=== PATIENT | female | born 2000 | race African-American/Black ===

== ENCOUNTER 2021-05-10 13:37 | Emergency (ER) | payer MEDICAID ==
[~2021-05-10] VITALS: Ht 160 cm; Wt 55.0 kg
[2021-05-10 15:03] LABS: BASOPHILS % 0.3 % (0.0-2.0); EOSINOPHILS % 3.3 % (0.0-5.0); HEMATOCRIT. 38.8 % (36.0-48.0); HEMOGLOBIN. 12.4 g/dL (12.0-16.0); LYMPHOCYTES % 13.1 % (20.0-50.0); MEAN CORPUSCULAR HEMOGLOBIN 27.3 pg (28.0-32.0); MEAN CORPUSCULAR VOLUME 85.4 fL (81.0-99.0); MEAN PLATELET VOLUME 8.1 fl (7.4-10.4); MONOCYTES % 3.9 % (2.0-8.0); NEUTROPHILS % 79.4 % (40.0-76.0); PLATELET 290 x1000/uL (130-400); RED BLOOD CELL COUNT 4.54 mill/uL (4.2-5.4); RED CELL DISTRIBUTION WIDTH 14.7 % (11.6-14.6)
[2021-05-10 15:07] LABS: CHLORIDE 101 mEq/L (98-107)
[2021-05-10 15:31] LABS: B-HCG QUANTITATIVE 36856 mIU/mL (<3)
[2021-05-10 17:42] LABS: CLARITY URINE CLEAR (CLEAR); COLOR URINE YELLOW (YELLOW); KETONES URINE NEGATIVE (NEGATIVE); LEUKOCYTE ESTERASE URINE 3+ (NEGATIVE); NITRITE URINE NEGATIVE (NEGATIVE); OCCULT BLOOD URINE NEGATIVE (NEGATIVE); PROTEIN URINE NEGATIVE (NEGATIVE); SPECIFIC GRAVITY URINE 1.014 (1.005-1.030); UROBILINOGEN URINE 0.2 E.U./dL (0.2-1.0)
[2021-05-10] MEDS ORDERED: NITR-87 MT (18:47)
[2021-05-10 18:59] VITALS: BP 118/65
== END 2021-05-10 19:00 | disposition home or self-care (01) ==
LOC: ER 13:37
DX: O26.892 Other specified pregnancy related conditions, second trimester (principal); Z3A.17 17 weeks gestation of pregnancy
CPT/HCPCS: 36415; 76805; 80053; 81003; 84702; 85025; 86850; 86900; 99291

== ENCOUNTER 2021-06-21 11:52 | Emergency (ER) | payer MEDICAID ==
[~2021-06-21] VITALS: Ht 165.1 cm; Wt 69.0 kg
[~2021-06-21 11:52] MED LIST: NITR-87 MT
[2021-06-21 11:58] VITALS: BP 120/60
[2021-06-21] MEDS ORDERED: ACETAMINOPHEN 325MG TABLET PO ONE (12:15)
[2021-06-21] MEDS ORDERED: TOPUD PO (12:16)
== END 2021-06-21 13:08 | disposition home or self-care (01) ==
LOC: ER 13:00
DX: B34.9 Viral infection, unspecified (principal); Z20.822 Contact with and (suspected) exposure to COVID-19
CPT/HCPCS: 99283; C9803; U0003; U0005

== ENCOUNTER 2021-10-28 23:11 | Emergency (ER) | payer MEDICAID ==
[~2021-10-28] VITALS: Ht 162.6 cm; Wt 63.5 kg
[~2021-10-28 23:11] MED LIST changes: +NIFE-33 PO; +TOPUD PO
[2021-10-29] VITALS: BP 149/97
[2021-10-29] MEDS ORDERED: SODIUM CHLORIDE 0.9% 1,000 ML IV ONE
[2021-10-29 01:08] LABS: BASOPHILS % 0.6 % (0.0-2.0); EOSINOPHILS % 1.7 % (0.0-5.0); HEMATOCRIT. 34.7 % (36.0-48.0); HEMOGLOBIN. 11.4 g/dL (12.0-16.0); LYMPHOCYTES % 11.4 % (20.0-50.0); MEAN CORPUSCULAR HEMOGLOBIN 27.2 pg (28.0-32.0); MEAN CORPUSCULAR VOLUME 82.5 fL (81.0-99.0); MEAN PLATELET VOLUME 7.3 fl (7.4-10.4); MONOCYTES % 5.4 % (2.0-8.0); NEUTROPHILS % 80.9 % (40.0-76.0); PLATELET 422 x1000/uL (130-400); RED BLOOD CELL COUNT 4.21 mill/uL (4.2-5.4); RED CELL DISTRIBUTION WIDTH 16.2 % (11.6-14.6)
[2021-10-29 01:12] LABS: CHLORIDE 103 mEq/L (98-107)
[2021-10-29] MEDS ORDERED: LABETALOL 5MG/ML SYR 20 MG/4 ML SYRINGE IV SCH (01:30)
== END 2021-10-29 04:51 | disposition home or self-care (01) ==
LOC: ER 23:26
DX: O16.5 Unspecified maternal hypertension, complicating the puerperium (principal); R53.1 Weakness; R10.9 Unspecified abdominal pain
CPT/HCPCS: 36415; 71045; 80048; 83880; 85025; 93005; 96360; 99285

== ENCOUNTER 2021-11-03 05:31 | Emergency (ER) | payer MEDICAID ==
[~2021-11-03] VITALS: Ht 160 cm; Wt 61.9 kg
[2021-11-03 07:03] LABS: BASOPHILS % 0.4 % (0.0-2.0); EOSINOPHILS % 1.5 % (0.0-5.0); HEMATOCRIT. 34.7 % (36.0-48.0); HEMOGLOBIN. 11.6 g/dL (12.0-16.0); LYMPHOCYTES % 16.1 % (20.0-50.0); MEAN CORPUSCULAR HEMOGLOBIN 27.4 pg (28.0-32.0); MEAN CORPUSCULAR VOLUME 82.4 fL (81.0-99.0); MEAN PLATELET VOLUME 7.3 fl (7.4-10.4); MONOCYTES % 4.6 % (2.0-8.0); NEUTROPHILS % 77.4 % (40.0-76.0); PLATELET 441 x1000/uL (130-400); RED BLOOD CELL COUNT 4.22 mill/uL (4.2-5.4); RED CELL DISTRIBUTION WIDTH 16.2 % (11.6-14.6)
[2021-11-03 07:06] LABS: CHLORIDE 106 mEq/L (98-107)
[2021-11-03 07:16] LABS: CLARITY URINE CLEAR (CLEAR); COLOR URINE YELLOW (YELLOW); KETONES URINE NEGATIVE (NEGATIVE); LEUKOCYTE ESTERASE URINE NEGATIVE (NEGATIVE); NITRITE URINE NEGATIVE (NEGATIVE); OCCULT BLOOD URINE 1+ (NEGATIVE); PH URINE 6.5 (4.5-8.0); PROTEIN URINE NEGATIVE (NEGATIVE); SPECIFIC GRAVITY URINE 1.005 (1.005-1.030); UROBILINOGEN URINE 0.2 E.U./dL (0.2-1.0)
[2021-11-03 07:23] LABS: ETHANOL BLOOD < 10 mg/dL
[2021-11-03 07:25] LABS: HCG SCREEN NEGATIVE
[2021-11-03 07:34] LABS: *AMPHETAMINES SCREEN URINE NEGATIVE (NEGATIVE); *BARBITURATES SCREEN URINE NEGATIVE (NEGATIVE); *BENZODIAZEPINES SCREEN URINE NEGATIVE (NEGATIVE); *COCAINE SCREEN URINE NEGATIVE (NEGATIVE); CANNABINOID URINE SCREEN NEGATIVE (NEGATIVE); METHADONE URINE SCREEN NEGATIVE (NEGATIVE); OPIATES URINE SCREEN NEGATIVE (NEGATIVE); PHENCYCLIDINE URINE SCREEN NEGATIVE (NEGATIVE)
[2021-11-03] MEDS ORDERED: HALOPERIDOL LACTATE 5MG/ML VIAL IM ONE (09:15)
[2021-11-03] MEDS ORDERED: LORAZEPAM 2MG/ML CPJ IM ONE (09:15)
[2021-11-03] MEDS ORDERED: LORAZEPAM 1MG TABLET PO ONE (19:00)
[2021-11-03] MEDS ORDERED: DIPHENHYDRAMINE 50MG/ML VIAL IM STA (19:23)
[2021-11-03] MEDS ORDERED: LORAZEPAM 2MG/ML CPJ IM STA (19:23)
[2021-11-04 10:30] VITALS: BP 124/73
[2021-11-05] MEDS ORDERED: ARIPIPRAZOLE 5MG TABLET PO SCH (09:00)
== END 2021-11-04 16:00 | disposition short-term general hospital (02) ==
LOC: ER 05:31
DX: R45.851 Suicidal ideations (principal); Z20.822 Contact with and (suspected) exposure to COVID-19
CPT/HCPCS: 36415; 80053; 80305; 80307; 80320; 80329; 81003; 84703; 85025; 96372; 99285; C9803; J1200; J1630; J2060; U0003; U0005; G0480